=== PATIENT | male | born 1975 ===

== ENCOUNTER 2017-09-08 13:54 | Observation (INO) | payer SELFPAY ==
--- NOTE | 2017-09-08 14:46 | C.PDOC ---
History Of Present Illness Patient is a 42 y/o male, with a Hx of HTN, who presents to the ED with a complaint of intermittent SOB and left-sided posterior rib discomfort. Patient currently takes ___ for HTN. Denies any CP, trauma, injury, or Hx of DVT or PE. No other physical complaints at this time. Time Seen by Provider: 09/08/17 14:23 Chief Complaint (Nursing): High Blood Pressure History Per: Patient History/Exam Limitations: no limitations Current Symptoms Are (Timing): Still Present Associated Symptoms: Other (intermittent SOB ). denies: Chest Pain Recent travel outside of the [place]: No Past Medical History Reviewed: Historical Data, Nursing Documentation, Vital Signs Vital Signs: Last Vital Signs Temp 97.7 F 09/09/17 07:41 Pulse 81 09/09/17 11:56 Resp 20 09/09/17 07:41 BP 151/93 H 09/09/17 11:56 Pulse Ox 99 09/09/17 07:41 - Medical History PMH: HTN Surgical History: No Surg Hx Family History: States: No Known Family Hx - Social History Hx Tobacco Use: No Hx Alcohol Use: Yes Hx Substance Use: No - Immunization History Hx Tetanus Toxoid Vaccination: No Hx Influenza Vaccination: No Hx Pneumococcal Vaccination: No Review Of Systems Cardiovascular: Negative for: Chest Pain Respiratory: Positive for: Shortness of Breath Physical Exam - Physical Exam Appears: Well, Non-toxic, No Acute Distress Skin: Normal Color, Warm, Dry Head: Atraumatic, Normacephalic Eye(s): bilateral: PERRL, EOMI Oral Mucosa: Moist Chest: Symmetrical, No Tenderness Cardiovascular: Rhythm Regular, No Murmur Respiratory: Normal Breath Sounds, No Rales, No Rhonchi, No Wheezing Gastrointestinal/Abdominal: Soft, No Tenderness Neurological/Psych: Oriented x3 ED Course And Treatment - Laboratory Results Result Diagrams: 09/09/17 03:56 09/09/17 03:56 ECG: Interpreted By Me, Viewed By Me ECG Rhythm: Sinus Rhythm, Nonspecific Changes Interpretation Of ECG: normal intervals, normal axis, no st/t wave abnormalities. Rate From EC (bpm) O2 Sat by Pulse Oximetry: 96 (room air) Pulse Ox Interpretation: Normal - CT Scan/US CT Chest Other Rad Studies (CT/US): Interpreted By Me, Read By Radiologist CT/US Interpretation: PROCEDURE: CT Chest with contrast. HISTORY: chest pain. COMPARISON: None. TECHNIQUE: Contiguous axial images were obtained through the chest with intravenous contrast enhancement. Sagittal and coronal reconstructions were performed. IV contrast: 100 mL Visipaque 320. Radiation dose (DLP): 533.41 mGy-cm. This CT exam was performed using one or more of the following dose reduction techniques: Automated exposure control, adjustment of the mA and/or kV according to patient size, and/or use of iterative reconstruction technique. FINDINGS: LUNGS: No evidence of acute pathology in the lungs. No evidence of suspicious mass. MEDIASTINUM: Unremarkable thoracic aorta. No aneurysm or dissection. Normal sized heart. Main pulmonary artery unremarkable. No vascular congestion. No lymphadenopathy. PLEURA: No pleural fluid. No pneumothorax. BONES: No fracture. No destructive lesion. UPPER ABDOMEN: The left kidney is not visualized. No evidence of acute pathology in the visualized portion of the upper abdomen. OTHER FINDINGS: None. IMPRESSION : No evidence of acute pathology in the chest. Please note that this study was performed using PE protocol. Progress Note: EKG ordered. Trandate administered. Patient accepted and admitted to [facility] by hospitalist. Disposition Discussed With DrParul: Jarrett Kevin Counseled Patient/Family Regarding: Studies Performed, Diagnosis - Disposition Disposition: HOSPITALIZED Disposition Time: 17:36 Condition: STABLE - Clinical Impression Clinical Impression: Chest pain - Scribe Statement The provider has reviewed the documentation as recorded by the Scribe Harriet Biswas All medical record entries made by the Scribe were at my direction and personally dictated by me. I have reviewed the chart and agree that the record accurately reflects my personal performance of the history, physical exam, medical decision making, and the department course for this patient. I have also personally directed, reviewed, and agree with the discharge instructions and disposition.
[2017-09-08 15:20] LABS: BASO % 0.6 % (0.0-2.0); EOS # 0.1 K/uL (0.0-0.7); EOS % 1.8 % (0.0-4.0); HEMOGLOBIN 16.3 g/dL (12.0-18.0); LYMPH # 2.2 K/uL (1.0-4.3); LYMPH % 30.7 % (20.0-40.0); MEAN CELL VOLUME 81.6 fL (80.0-94.0); MEAN CORPUSCULAR HGB CONC 34.3 g/dL (33.0-37.0); MEAN PLATELET VOLUME 8.4 fL (7.2-11.7); MONO # 0.5 K/uL (0.0-0.8); MONO % 7.2 % (0.0-10.0); NEUT # 4.2 K/uL (1.8-7.0); NEUT % 59.7 % (50.0-75.0); RBC 5.82 Mil/uL (4.40-5.90); RED CELL DISTRIBUTION WIDTH 13.4 % (11.5-14.5)
[2017-09-08 15:34] LABS: ALB/GLOB RATIO 1.3 (1.0-2.1); ALBUMIN 4.5 g/dL (3.5-5.0); ALT/SGPT 32 U/L (21-72); AST/SGOT 33 U/L (17-59); BLOOD UREA NITROGEN 12 mg/dL (9-20); CALCIUM 9.6 mg/dl (8.6-10.4); GFR AFRICAN-AMERICAN > 60; GFR NON-AFRICAN AMERICAN > 60
[2017-09-08 15:47] LABS: B-TYPE NATRIURETIC PEPTIDE < 11.1 pg/mL (0-450)
[2017-09-08] MEDS ORDERED: Iodixanol 320 mg/ml 150 ml Bottle IV ONE (15:53)
--- NOTE | 2017-09-08 16:33 | CT ---
PROCEDURE: CT Chest with contrast HISTORY: chest pain COMPARISON: None. TECHNIQUE: Contiguous axial images were obtained through the chest with intravenous contrast enhancement. Sagittal and coronal reconstructions were performed. IV contrast: 100 mL Visipaque 320 Radiation dose (DLP): 533.41 mGy-cm. This CT exam was performed using one or more of the following dose reduction techniques: Automated exposure control, adjustment of the mA and/or kV according to patient size, and/or use of iterative reconstruction technique. FINDINGS: LUNGS: No evidence of acute pathology in the lungs. No evidence of suspicious mass. MEDIASTINUM: Unremarkable thoracic aorta. No aneurysm or dissection. Normal sized heart. Main pulmonary artery unremarkable. No vascular congestion. No lymphadenopathy. PLEURA: No pleural fluid. No pneumothorax. BONES: No fracture. No destructive lesion. UPPER ABDOMEN: The left kidney is not visualized. No evidence of acute pathology in the visualized portion of the upper abdomen. OTHER FINDINGS: None. IMPRESSION: No evidence of acute pathology in the chest. Please note that this study was performed using PE protocol.
[2017-09-08] MEDS ORDERED: Labetalol 5 mg/ml Inj 20ML IV STA (17:32)
[2017-09-08] MEDS ORDERED: Labetalol 25mg/5ml Syringe ONE (17:54)
--- NOTE | 2017-09-08 18:23 | CP.PCM.HP ---
<Lorie Rodriguez - Last Filed: 09/08/17 18:50> History of Present Illness - History of Present Illness History of Present Illness: CC - "Shortness of breath" HPI - 42 year old male with a past medical history of hypertension presents today for shortness of breath. He states this has been intermittent for the last couple weeks. He denies sick contacts, fever/chills, cough, chest pain. He states that he went to his family doctor to tell her and she kristina blood work on him. He states that at time he will get a discomfort like a gassy sensation by his ribs on the left side when he is short of breath. Patient states that he feels this happens when his blood pressure is high. He states that when he checks his blood pressure at home he gets systolic 170s. He admits compliance with medications. PmHx - hypertension Meds - Diltiazem 24 ER 240mg PO daily, Irbesartan/Hctz 12.5/150 PO daily Allergies - NKDA Surg - denies Famhx - father with esophageal ca, no hx of ME or stroke Social - socially smokes cigarettes, socially drinks alcohol less than once a week, denies drug use Present on Admission - Present on Admission Any Indicators Present on Admission: No Review of Systems - Constitutional Constitutional: absent: Chills, Fever - EENT Eyes: absent: Blurred Vision, Change in Vision - Cardiovascular Cardiovascular: absent: Chest Pain, Chest Pain at Rest, Palpitations, Pedal Edema, Syncope - Respiratory Respiratory: Dyspnea, Dyspnea on Exertion. absent: Cough - Gastrointestinal Gastrointestinal: absent: Abdominal Pain, Constipation, Diarrhea, Heartburn, Nausea, Vomiting - Genitourinary Genitourinary: absent: Change in Urinary Stream, Difficulty Urinating Past Patient History - Past Social History Smoking Status: Never Smoked - CARDIAC Hx Hypertension: Yes - PSYCHIATRIC Hx Substance Use: No - SURGICAL HISTORY Other/Comment: testicle surgery-2012 Meds Allergies/Adverse Reactions: Allergies Allergy/AdvReac Type Severity Reaction Status Date / Time No Known Allergies Allergy Verified 09/08/17 14:01 Physical Exam - Constitutional Appears: Non-toxic, No Acute Distress - Head Exam Head Exam: ATRAUMATIC, NORMAL INSPECTION - Eye Exam Eye Exam: EOMI, Normal appearance, PERRL Pupil Exam: NORMAL ACCOMODATION - ENT Exam ENT Exam: Mucous Membranes Moist - Respiratory Exam Respiratory Exam: Clear to Auscultation Bilateral, NORMAL BREATHING PATTERN. absent: Accessory Muscle Use, Chest Wall Tenderness, Rales, Wheezes, Respiratory Distress - Cardiovascular Exam Cardiovascular Exam: REGULAR RHYTHM, +S1, +S2 - GI/Abdominal Exam GI & Abdominal Exam: Normal Bowel Sounds, Soft. absent: Distended, Firm, Guarding, Tenderness - Extremities Exam Extremities exam: Positive for: normal inspection. Negative for: calf tenderness, pedal edema - Back Exam Back exam: NORMAL INSPECTION. absent: CVA tenderness (L), CVA tenderness (R), paraspinal tenderness - Neurological Exam Neurological exam: Alert, CN II-XII Intact, Normal Gait, Oriented x3 - Psychiatric Exam Psychiatric exam: Normal Affect, Normal Mood - Skin Skin Exam: Dry, Intact, Normal Color, Warm Results - Vital Signs Recent Vital Signs: Last Vital Signs Temp 98.2 F 09/08/17 17:41 Pulse 90 09/08/17 18:08 Resp 18 09/08/17 18:08 BP 159/96 H 09/08/17 18:08 Pulse Ox 100 09/08/17 17:41 - Labs Result Diagrams: 09/08/17 15:11 09/08/17 15:11 Labs: Laboratory Results - last 24 hr 09/08/17 09/08/17 09/08/17 15:11 15:11 15:11 WBC 7.0 RBC 5.82 Hgb 16.3 Hct 47.5 MCV 81.6 MCH 28.0 MCHC 34.3 RDW 13.4 Plt Count 301 MPV 8.4 Neut % (Auto) 59.7 Lymph % (Auto) 30.7 Richardson % (Auto) 7.2 Eos % (Auto) 1.8 Baso % (Auto) 0.6 Neut # (Auto) 4.2 Lymph # (Auto) 2.2 Richardson # (Auto) 0.5 Eos # (Auto) 0.1 Baso # (Auto) 0.0 D-Dimer, Quantitative < 200 Sodium 136 Potassium 3.9 Chloride 96 L Carbon Dioxide 28 Anion Gap 16 BUN 12 Creatinine 1.0 Est GFR ( Amer) > 60 Est GFR (Non-Af Amer) > 60 Random Glucose 106 Calcium 9.6 Total Bilirubin 1.3 AST 33 ALT 32 Alkaline Phosphatase 81 Troponin I < 0.0120 NT-Pro-B Natriuret Pep < 11.1 Total Protein 7.9 Albumin 4.5 Globulin 3.5 Albumin/Globulin Ratio 1.3 Assessment & Plan - Assessment and Plan (Free Text) Assessment: Shortness of breath CT chest negative DDimer negative Troponin negative, will trend x 3 EKG no acute changes, NSR Albuterol prn SOB saturating 99% on room air f/u echo, am labs Hypertension Uncontrolled, elevated on admission Continue Cardizem 240mg PO daily Continue Irbesartan/Hctz 12.5/150mg PO daily Prophylactic Measures SCD GI - not indicated Heart healthy low sodium diet <Jarrett Kevin - Last Filed: 09/08/17 19:08> Results - Vital Signs Recent Vital Signs: Last Vital Signs Temp 98 F 09/08/17 18:52 Pulse 71 09/08/17 18:52 Resp 16 09/08/17 18:52 BP 136/99 H 09/08/17 18:52 Pulse Ox 99 09/08/17 18:52 - Labs Result Diagrams: 09/08/17 15:11 09/08/17 15:11 Labs: Laboratory Results - last 24 hr 09/08/17 09/08/17 09/08/17 15:11 15:11 15:11 WBC 7.0 RBC 5.82 Hgb 16.3 Hct 47.5 MCV 81.6 MCH 28.0 MCHC 34.3 RDW 13.4 Plt Count 301 MPV 8.4 Neut % (Auto) 59.7 Lymph % (Auto) 30.7 Richardson % (Auto) 7.2 Eos % (Auto) 1.8 Baso % (Auto) 0.6 Neut # (Auto) 4.2 Lymph # (Auto) 2.2 Richardson # (Auto) 0.5 Eos # (Auto) 0.1 Baso # (Auto) 0.0 D-Dimer, Quantitative < 200 Sodium 136 Potassium 3.9 Chloride 96 L Carbon Dioxide 28 Anion Gap 16 BUN 12 Creatinine 1.0 Est GFR ( Amer) > 60 Est GFR (Non-Af Amer) > 60 Random Glucose 106 Calcium 9.6 Total Bilirubin 1.3 AST 33 ALT 32 Alkaline Phosphatase 81 Troponin I < 0.0120 NT-Pro-B Natriuret Pep < 11.1 Total Protein 7.9 Albumin 4.5 Globulin 3.5 Albumin/Globulin Ratio 1.3 Attending/Attestation - Attestation I have personally seen and examined this patient.: Yes I have fully participated in the care of the patient.: Yes I have reviewed all pertinent clinical information: Yes Notes (Text): Patient was seen and examined by me. Came for SOB on exertion for 2 weeks.No chest pain,no palpitation. not a smoker h/o HTN on meds.compliance with meds,no h/o heart disease d dimer normal,ct chest normal Plan discussed with the resident I agree with the documentation of the assessment and the plan do echo,ELIO panel,tele observation follow at clinic
[2017-09-08] MEDS ORDERED: Albuterol-Ipratrop 3 mg / 0.5 (3 ml) UD INH PRN (18:38)
[2017-09-09 04:01] LABS: BASO # 0.1 K/uL (0.0-0.2); BASO % 0.8 % (0.0-2.0); EOS # 0.2 K/uL (0.0-0.7); EOS % 1.8 % (0.0-4.0); HEMOGLOBIN 16.5 g/dL (12.0-18.0); LYMPH % 33.2 % (20.0-40.0); MEAN CELL VOLUME 81.7 fL (80.0-94.0); MEAN CORPUSCULAR HEMOGLOBIN 28.2 pg (27.0-31.0); MEAN CORPUSCULAR HGB CONC 34.6 g/dL (33.0-37.0); MEAN PLATELET VOLUME 8.3 fL (7.2-11.7); MONO # 0.7 K/uL (0.0-0.8); MONO % 7.2 % (0.0-10.0); NEUT # 5.2 K/uL (1.8-7.0); RBC 5.82 Mil/uL (4.40-5.90); RED CELL DISTRIBUTION WIDTH 13.6 % (11.5-14.5); WHITE BLOOD COUNT 9.1 K/uL (4.8-10.8)
[2017-09-09 04:19] LABS: ALB/GLOB RATIO 1.3 (1.0-2.1); ALBUMIN 4.1 g/dL (3.5-5.0); ALT/SGPT 30 U/L (21-72); AST/SGOT 28 U/L (17-59); BLOOD UREA NITROGEN 11 mg/dL (9-20); CALCIUM 9.6 mg/dl (8.6-10.4); GFR AFRICAN-AMERICAN > 60; GFR NON-AFRICAN AMERICAN > 60; HDL CHOLESTEROL 38 mg/dL (30-70)
[2017-09-09 04:29] LABS: LDL CHOLESTEROL 75 mg/dL (0-129)
[2017-09-09 05:52] LABS: CK-MB 1.58 ng/mL (0.0-3.38)
[2017-09-09 07:42] VITALS: RESP 20; TEMP 97.7
[2017-09-09] MEDS ORDERED: Ergocalciferol 50,000 Intl Units Cap PO SCH (08:00)
[2017-09-09] MEDS ORDERED: diltiaZEM 240 mg/24 Hours CD Cap PO SCH (10:00)
[2017-09-09] MEDS ORDERED: Pneumococcal 23-Valent Vaccine IM ONE (11:00)
--- NOTE | 2017-09-09 11:24 | CP.PCM.DIS ---
<Martín Payne - Last Filed: 09/09/17 16:11> Provider - Provider Date of Admission: 09/08/17 17:35 Attending physician: Jarrett Kevin MD Primary care physician: Montse Consults: none Time Spent in preparation of Discharge (in minutes): 45 Hospital Course - Lab Results Lab Results: Most Recent Lab Values WBC 9.1 K/uL (4.8-10.8) 09/09/17 03:56 RBC 5.82 Mil/uL (4.40-5.90) 09/09/17 03:56 Hgb 16.5 g/dL (12.0-18.0) 09/09/17 03:56 Hct 47.6 % (35.0-51.0) 09/09/17 03:56 MCV 81.7 fL (80.0-94.0) 09/09/17 03:56 MCH 28.2 pg (27.0-31.0) 09/09/17 03:56 MCHC 34.6 g/dL (33.0-37.0) 09/09/17 03:56 RDW 13.6 % (11.5-14.5) 09/09/17 03:56 Plt Count 310 K/uL (130-400) 09/09/17 03:56 MPV 8.3 fL (7.2-11.7) 09/09/17 03:56 Neut % (Auto) 57.0 % (50.0-75.0) 09/09/17 03:56 Lymph % (Auto) 33.2 % (20.0-40.0) 09/09/17 03:56 Ramsey % (Auto) 7.2 % (0.0-10.0) 09/09/17 03:56 Eos % (Auto) 1.8 % (0.0-4.0) 09/09/17 03:56 Baso % (Auto) 0.8 % (0.0-2.0) 09/09/17 03:56 Neut # (Auto) 5.2 K/uL (1.8-7.0) 09/09/17 03:56 Lymph # (Auto) 3.0 K/uL (1.0-4.3) 09/09/17 03:56 Ramsey # (Auto) 0.7 K/uL (0.0-0.8) 09/09/17 03:56 Eos # (Auto) 0.2 K/uL (0.0-0.7) 09/09/17 03:56 Baso # (Auto) 0.1 K/uL (0.0-0.2) 09/09/17 03:56 D-Dimer, Quantitative < 200 ng/mlDDU (0-243) 09/08/17 15:11 Sodium 138 mmol/L (132-148) 09/09/17 03:56 Potassium 3.8 mmol/L (3.6-5.2) 09/09/17 03:56 Chloride 98 mmol/L (98-107) 09/09/17 03:56 Carbon Dioxide 27 mmol/L (22-30) 09/09/17 03:56 Anion Gap 17 (10-20) 09/09/17 03:56 BUN 11 mg/dL (9-20) 09/09/17 03:56 Creatinine 0.9 mg/dL (0.8-1.5) 09/09/17 03:56 Est GFR ( Amer) > 60 09/09/17 03:56 Est GFR (Non-Af Amer) > 60 09/09/17 03:56 Random Glucose 94 mg/dL (75-110) 09/09/17 03:56 Hemoglobin A1c 5.9 % (4.2-6.5) 09/09/17 03:56 Calcium 9.6 mg/dl (8.6-10.4) 09/09/17 03:56 Phosphorus 4.6 mg/dL (2.5-4.5) H 09/09/17 03:56 Magnesium 1.9 mg/dL (1.6-2.3) 09/09/17 03:56 Total Bilirubin 1.2 mg/dL (0.2-1.3) 09/09/17 03:56 AST 28 U/L (17-59) 09/09/17 03:56 ALT 30 U/L (21-72) 09/09/17 03:56 Alkaline Phosphatase 90 U/L (38-126) 09/09/17 03:56 Total Creatine Kinase 140 U/L (55-170) 09/09/17 00:44 CK-MB (Mass) 1.58 ng/mL (0.0-3.38) 09/09/17 00:44 Troponin I < 0.0120 ng/mL (0.00-0.120) 09/09/17 00:44 NT-Pro-B Natriuret Pep < 11.1 pg/mL (0-450) 09/08/17 15:11 Total Protein 7.2 g/dL (6.3-8.3) 09/09/17 03:56 Albumin 4.1 g/dL (3.5-5.0) 09/09/17 03:56 Globulin 3.1 gm/dL (2.2-3.9) 09/09/17 03:56 Albumin/Globulin Ratio 1.3 (1.0-2.1) 09/09/17 03:56 Triglycerides 191 mg/dL (0-149) H 09/09/17 03:56 Cholesterol 148 mg/dL (0-199) 09/09/17 03:56 LDL Cholesterol Direct 75 mg/dL (0-129) 09/09/17 03:56 HDL Cholesterol 38 mg/dL (30-70) 09/09/17 03:56 25-OH Vitamin D Total 22.4 NG/ML (30.0-100.0) L 09/09/17 03:56 Free T4 0.69 ng/dL (0.78-2.19) L 09/09/17 03:56 TSH 3rd Generation 5.09 mIU/L (0.46-4.68) H 09/09/17 03:56 - Hospital Course Hospital Course: 42 year old male with a past medical history of hypertension presents today for shortness of breath. He states this has been intermittent for the last couple weeks. He denies sick contacts, fever/chills, cough, chest pain. He states that he went to his family doctor to tell her and she kristina blood work on him. He states that at time he will get a discomfort like a gassy sensation by his ribs on the left side when he is short of breath. Patient states that he feels this happens when his blood pressure is high. He states that when he checks his blood pressure at home he gets systolic 170s. He admits compliance with medications. Patient was brought into the hospital for chest pain observation r/o CO. He had 3 negative troponins and 3 EKGs that did not show any ST changes or any arrythmogenic intervals. Patient went for echo while he was here. Patient was found to have elevated TSH and low vitamin D was started on ergocalciferol 10607 units Q7D. Instructed to follow up with his primary care for further work up for TSH level and low vitamin D. The rest of his stay was unremarkable. Discharge Exam - Head Exam Head Exam: ATRAUMATIC, NORMAL INSPECTION - Eye Exam Eye Exam: EOMI, Normal appearance, PERRL Pupil Exam: NORMAL ACCOMODATION, PERRL - Respiratory Exam Respiratory Exam: Clear to PA & Lateral, UNREMARKABLE - Cardiovascular Exam Cardiovascular Exam: REGULAR RHYTHM - GI/Abdominal Exam GI & Abdominal Exam: Normal Bowel Sounds - Neurological Exam Neurological exam: Alert, CN II-XII Intact, Normal Gait, Oriented x3, Reflexes Normal - Psychiatric Exam Psychiatric exam: Normal Affect, Normal Mood - Skin Skin Exam: Dry, Intact, Normal Color, Warm Discharge Plan - Discharge Medications Prescriptions: Ergocalciferol [Drisdol 50,000 Intl Units Cap] 1 cap PO Q7D 30 Days cap - Follow Up Plan Condition: STABLE Disposition: HOME/ ROUTINE Instructions: High Blood Pressure in Adults, Smoking: Not Just Harmful to Your Lungs and Heart, High Blood Pressure (DC), Low Salt Diet, Quitting Smoking Additional Instructions: 1. Please have primary doctor, Dr. Willard, follow up on your Elevated TSH level. It was elevated to 5.06 with a T4 of 0.69. I have attached a copy of your records for your primary doctor to review. 2. You were found to have a low level of Vitamin D. I have started you on medication to replace this vitamin. Please follow up with your regular doctor so he can manage this vitamin level. I have attached a copy of this report so you can give it to your primary care doctor. 3. Please have Dr. Willard follow up your Echo report. 4. Continue taking the follwoing medications: - Diltiazem CD 240 mg by mouth daily with dinner - Irbesartan-HCTZ 150/12.5mg by mouth daiuly with breakfast - Vitamin D 50,000 units by mouth once per week on Tuesdays for a total of 8 weeks with Lunch 5. Please call to get more information on how to quit smoking. <Chaka Dill - Last Filed: 09/09/17 19:50> Provider - Provider Date of Admission: 09/08/17 17:35 Attending physician: Jarrett Kevin MD Time Spent in preparation of Discharge (in minutes): 40 Hospital Course - Lab Results Lab Results: Most Recent Lab Values WBC 9.1 K/uL (4.8-10.8) 09/09/17 03:56 RBC 5.82 Mil/uL (4.40-5.90) 09/09/17 03:56 Hgb 16.5 g/dL (12.0-18.0) 09/09/17 03:56 Hct 47.6 % (35.0-51.0) 09/09/17 03:56 MCV 81.7 fL (80.0-94.0) 09/09/17 03:56 MCH 28.2 pg (27.0-31.0) 09/09/17 03:56 MCHC 34.6 g/dL (33.0-37.0) 09/09/17 03:56 RDW 13.6 % (11.5-14.5) 09/09/17 03:56 Plt Count 310 K/uL (130-400) 09/09/17 03:56 MPV 8.3 fL (7.2-11.7) 09/09/17 03:56 Neut % (Auto) 57.0 % (50.0-75.0) 09/09/17 03:56 Lymph % (Auto) 33.2 % (20.0-40.0) 09/09/17 03:56 Ramsey % (Auto) 7.2 % (0.0-10.0) 09/09/17 03:56 Eos % (Auto) 1.8 % (0.0-4.0) 09/09/17 03:56 Baso % (Auto) 0.8 % (0.0-2.0) 09/09/17 03:56 Neut # (Auto) 5.2 K/uL (1.8-7.0) 09/09/17 03:56 Lymph # (Auto) 3.0 K/uL (1.0-4.3) 09/09/17 03:56 Ramsey # (Auto) 0.7 K/uL (0.0-0.8) 09/09/17 03:56 Eos # (Auto) 0.2 K/uL (0.0-0.7) 09/09/17 03:56 Baso # (Auto) 0.1 K/uL (0.0-0.2) 09/09/17 03:56 D-Dimer, Quantitative < 200 ng/mlDDU (0-243) 09/08/17 15:11 Sodium 138 mmol/L (132-148) 09/09/17 03:56 Potassium 3.8 mmol/L (3.6-5.2) 09/09/17 03:56 Chloride 98 mmol/L (98-107) 09/09/17 03:56 Carbon Dioxide 27 mmol/L (22-30) 09/09/17 03:56 Anion Gap 17 (10-20) 09/09/17 03:56 BUN 11 mg/dL (9-20) 09/09/17 03:56 Creatinine 0.9 mg/dL (0.8-1.5) 09/09/17 03:56 Est GFR ( Amer) > 60 09/09/17 03:56 Est GFR (Non-Af Amer) > 60 09/09/17 03:56 Random Glucose 94 mg/dL (75-110) 09/09/17 03:56 Hemoglobin A1c 5.9 % (4.2-6.5) 09/09/17 03:56 Calcium 9.6 mg/dl (8.6-10.4) 09/09/17 03:56 Phosphorus 4.6 mg/dL (2.5-4.5) H 09/09/17 03:56 Magnesium 1.9 mg/dL (1.6-2.3) 09/09/17 03:56 Total Bilirubin 1.2 mg/dL (0.2-1.3) 09/09/17 03:56 AST 28 U/L (17-59) 09/09/17 03:56 ALT 30 U/L (21-72) 09/09/17 03:56 Alkaline Phosphatase 90 U/L (38-126) 09/09/17 03:56 Total Creatine Kinase 140 U/L (55-170) 09/09/17 00:44 CK-MB (Mass) 1.58 ng/mL (0.0-3.38) 09/09/17 00:44 Troponin I < 0.0120 ng/mL (0.00-0.120) 09/09/17 00:44 NT-Pro-B Natriuret Pep < 11.1 pg/mL (0-450) 09/08/17 15:11 Total Protein 7.2 g/dL (6.3-8.3) 09/09/17 03:56 Albumin 4.1 g/dL (3.5-5.0) 09/09/17 03:56 Globulin 3.1 gm/dL (2.2-3.9) 09/09/17 03:56 Albumin/Globulin Ratio 1.3 (1.0-2.1) 09/09/17 03:56 Triglycerides 191 mg/dL (0-149) H 09/09/17 03:56 Cholesterol 148 mg/dL (0-199) 09/09/17 03:56 LDL Cholesterol Direct 75 mg/dL (0-129) 09/09/17 03:56 HDL Cholesterol 38 mg/dL (30-70) 09/09/17 03:56 25-OH Vitamin D Total 22.4 NG/ML (30.0-100.0) L 09/09/17 03:56 Free T4 0.69 ng/dL (0.78-2.19) L 09/09/17 03:56 TSH 3rd Generation 5.09 mIU/L (0.46-4.68) H 09/09/17 03:56 Attending/Attestation - Attestation I have personally seen and examined this patient.: Yes I have fully participated in the care of the patient.: Yes I have reviewed all pertinent clinical information, including history, physical exam and plan: Yes Notes (Text): 09/09/17 19:48 Patient was seen and examined at 10:30 AM Exam, assessment and plan and discharge instructions were gone over with the resident Discharge instructions were explained to patient in Maltese with the help of GERRY Dill D.O.
[2017-09-09 11:59] VITALS: BP 151/93; PULSE 81
--- NOTE | 2017-09-10 02:03 | CARD ---
APPROVED REPORT EKG Measurement Heart [id number] NM [id number] <Conclusion> Normal sinus rhythm Normal ECG
--- NOTE | 2017-09-10 02:03 | CARD ---
APPROVED REPORT EKG Measurement Heart [id number] MA [id number] <Conclusion> Normal sinus rhythm with sinus arrhythmia Normal ECG
[2017-09-10 14:03] VITALS: O2SAT 96
== END 2017-09-09 14:01 | disposition home or self-care (01) ==
LOC: C.ER 13:54 → C.9E 17:35 → C.5S 18:33
PROVIDERS: ADMIT Internal Medicine; ATTEND Internal Medicine
DX: R07.9 Chest pain, unspecified (principal); I10 Essential (primary) hypertension; Z72.0 Tobacco use; R06.02 Shortness of breath; Z23 Encounter for immunization
CPT/HCPCS: 36415; 71260; 80053; 80061; 82306; 83036; 83735; 83880; 84100; 84439; 84443; 84484; 85025; 85378; 90732; 99285; G0009; G0378; Q9967

== ENCOUNTER 2017-11-02 20:02 | Emergency (ER) | payer SELFPAY ==
--- NOTE | 2017-11-02 21:01 | C.PDOC ---
History Of Present Illness 42 year old male presents to the ER with a complaint of elevated blood pressure today, associated with headache. Patient also reports having a dry cough and pain to his left side for the past few days. Denies nausea, vomiting, or SOB. Time Seen by Provider: 11/02/17 20:34 Chief Complaint (Nursing): High Blood Pressure History Per: Patient History/Exam Limitations: no limitations Onset/Duration Of Symptoms: Hrs Current Symptoms Are (Timing): Still Present Associated Symptoms: Headache Exacerbating Factor(s): Pos: None Recent travel outside of the [place]: No Past Medical History Reviewed: Historical Data, Nursing Documentation, Vital Signs Vital Signs: Last Vital Signs Temp 98.5 F 11/02/17 20:09 Pulse 45 L 11/02/17 20:42 Resp 12 11/02/17 20:42 BP 156/93 H 11/02/17 20:42 Pulse Ox 96 11/02/17 21:01 - Medical History PMH: HTN Family History: States: Unknown Family Hx - Social History Hx Tobacco Use: No Hx Alcohol Use: Yes Hx Substance Use: No - Immunization History Hx Tetanus Toxoid Vaccination: No Hx Influenza Vaccination: Yes Hx Pneumococcal Vaccination: No Review Of Systems Except As Marked, All Systems Reviewed And Found Negative. Respiratory: Positive for: Cough. Negative for: Shortness of Breath, Sputum Gastrointestinal: Negative for: Nausea, Vomiting Musculoskeletal: Positive for: Other (Pain to left side) Neurological: Positive for: Headache Physical Exam - Physical Exam Additional Physical Exam Comments: Constitutional: No acute distress. Head: Normocephalic. Atraumatic. Eyes: PERRL. ENT: Moist mucous membranes. Neck: Supple. Cardiovascular: Regular rate. Radial pulse 2+ bilaterally. Chest: No tenderness. Respiratory: Clear to auscultation bilaterally. GI: Soft. Nontender. Nondistended. Back: No CVA tenderness. Musculoskeletal: No tenderness or swelling of extremities. Skin: No rash. Neurologic: Alert, no focal deficit. ED Course And Treatment - Laboratory Results Result Diagrams: 11/02/17 21:14 11/02/17 21:14 O2 Sat by Pulse Oximetry: 96 (Room air) Pulse Ox Interpretation: Normal Medical Decision Making Medical Decision Making: BP improving without intervention. EKG Sinus rhythm, 50 bpm, no ST/T wave changes. CXR no pneumonia or fib fracture. Labs unremarkable with this thoracic pain for more than 2 days. Disposition - Disposition Disposition: HOME/ ROUTINE Disposition Time: 22:03 Condition: STABLE Instructions: Cough, Adult (DC), High Blood Pressure in Adults Forms: [facility] (Cuban) Print Language: BOTSWANAN - Clinical Impression Clinical Impression: Hypertension - Scribe Statement The provider has reviewed the documentation as recorded by the Scribe Charlie Roy All medical record entries made by the Ashaibe were at my direction and personally dictated by me. I have reviewed the chart and agree that the record accurately reflects my personal performance of the history, physical exam, medical decision making, and the department course for this patient. I have also personally directed, reviewed, and agree with the discharge instructions and disposition.
[2017-11-02 21:17] LABS: BASO % 0.5 % (0.0-2.0); EOS # 0.1 K/uL (0.0-0.7); EOS % 1.3 % (0.0-4.0); HEMOGLOBIN 15.9 g/dL (12.0-18.0); LYMPH # 1.5 K/uL (1.0-4.3); LYMPH % 24.5 % (20.0-40.0); MEAN CELL VOLUME 81.2 fL (80.0-94.0); MEAN CORPUSCULAR HEMOGLOBIN 27.3 pg (27.0-31.0); MEAN CORPUSCULAR HGB CONC 33.6 g/dL (33.0-37.0); MEAN PLATELET VOLUME 7.8 fL (7.2-11.7); MONO # 0.5 K/uL (0.0-0.8); MONO % 7.7 % (0.0-10.0); NRBC % 0.1 % (0.0-2.0); RBC 5.83 Mil/uL (4.40-5.90); RED CELL DISTRIBUTION WIDTH 13.3 % (11.5-14.5); WHITE BLOOD COUNT 6.1 K/uL (4.8-10.8)
[2017-11-02 21:28] LABS: ALB/GLOB RATIO 1.3 (1.0-2.1); ALBUMIN 4.2 g/dL (3.5-5.0); ALT/SGPT 36 U/L (21-72); AST/SGOT 33 U/L (17-59); BLOOD UREA NITROGEN 13 mg/dL (9-20); CALCIUM 9.6 mg/dl (8.6-10.4); GFR AFRICAN-AMERICAN > 60; GFR NON-AFRICAN AMERICAN > 60
[2017-11-02 21:40] LABS: CK-MB 2.26 ng/mL (0.0-3.38)
[2017-11-02 22:09] VITALS: TEMP 99.1
[2017-11-02 22:15] VITALS: BP 152/98; PULSE 47; RESP 14; O2SAT 96
--- NOTE | 2017-11-03 07:52 | RAD ---
HISTORY: cough COMPARISON: Comparison is made with the previous CT dated 09/08/2017 TECHNIQUE: Chest PA and lateral FINDINGS: LUNGS: No active pulmonary disease. PLEURA: No significant pleural effusion identified. No pneumothorax apparent. CARDIOVASCULAR: Normal. OSSEOUS STRUCTURES: No significant abnormalities. VISUALIZED UPPER ABDOMEN: Normal. OTHER FINDINGS: None. IMPRESSION: No radiographic evidence of pneumonia.
--- NOTE | 2017-11-06 22:39 | CARD ---
APPROVED REPORT EKG Measurement Heart [id number] [place] 202P59 [id number] <Conclusion> Sinus bradycardia Otherwise normal ECG
== END 2017-11-02 22:16 | disposition home or self-care (01) ==
LOC: C.ER 20:02
DX: I10 Essential (primary) hypertension (principal)
CPT/HCPCS: 71046; 80053; 82550; 82553; 84484; 85025; 96374; 99284; J1885

== ENCOUNTER 2017-11-05 11:14 | Emergency (ER) | payer SELFPAY ==
[2017-11-05 12:48] LABS: BASO % 0.6 % (0.0-2.0); EOS % 0.6 % (0.0-4.0); LYMPH # 1.6 K/uL (1.0-4.3); MEAN CELL VOLUME 81.8 fL (80.0-94.0); MEAN CORPUSCULAR HEMOGLOBIN 27.7 pg (27.0-31.0); MEAN CORPUSCULAR HGB CONC 33.9 g/dL (33.0-37.0); MEAN PLATELET VOLUME 8.4 fL (7.2-11.7); MONO # 0.4 K/uL (0.0-0.8); MONO % 5.6 % (0.0-10.0); NEUT % 70.2 % (50.0-75.0); NRBC % 0.1 % (0.0-2.0); RBC 5.76 Mil/uL (4.40-5.90); RED CELL DISTRIBUTION WIDTH 13.4 % (11.5-14.5); WHITE BLOOD COUNT 7.1 K/uL (4.8-10.8)
[2017-11-05 13:04] LABS: ALB/GLOB RATIO 1.5 (1.0-2.1); ALBUMIN 4.5 g/dL (3.5-5.0); ALT/SGPT 34 U/L (21-72); AST/SGOT 30 U/L (17-59); BLOOD UREA NITROGEN 11 mg/dL (9-20); CALCIUM 9.6 mg/dl (8.6-10.4); GFR AFRICAN-AMERICAN > 60; GFR NON-AFRICAN AMERICAN > 60
--- NOTE | 2017-11-05 13:21 | C.PDOC ---
History Of Present Illness 42-year-old male, PMHx includes Hypertension, presents to the emergency department with complaints of headache and chest pain. Patient states he was already evaluated a few days ago, and also went to see his doctor who added Amlodipine to medication regiment. Pt reports he checked his blood pressure, which was high, prompting visit. He denies any numbness/weakness, nausea/ vomiting, dizziness, shortness of breath, back pain, speech or visual changes. PMD Cailin Wilcox MD. Time Seen by Provider: 11/05/17 12:16 Chief Complaint (Nursing): High Blood Pressure History Per: Patient History/Exam Limitations: no limitations Onset/Duration Of Symptoms: Days Current Symptoms Are (Timing): Still Present Past Medical History Reviewed: Historical Data, Nursing Documentation, Vital Signs Vital Signs: Last Vital Signs Temp 98 F 11/05/17 13:43 Pulse 78 11/05/17 13:43 Resp 18 11/05/17 13:43 BP 143/86 11/05/17 13:43 Pulse Ox 100 11/05/17 18:36 - Medical History PMH: HTN Denies: Chronic Kidney Disease Family History: States: No Known Family Hx - Social History Hx Tobacco Use: No Hx Alcohol Use: Yes Hx Substance Use: No - Immunization History Hx Tetanus Toxoid Vaccination: No Hx Influenza Vaccination: Yes Hx Pneumococcal Vaccination: No Review Of Systems Constitutional: Negative for: Fever, Chills Cardiovascular: Positive for: Chest Pain. Negative for: Palpitations Respiratory: Negative for: Shortness of Breath Gastrointestinal: Negative for: Nausea, Vomiting, Abdominal Pain Musculoskeletal: Negative for: Back Pain Skin: Negative for: Rash Neurological: Negative for: Weakness, Numbness, Headache, Dizziness Physical Exam - Physical Exam Appears: Non-toxic, No Acute Distress Skin: Normal Color, Warm, Dry, No Rash Head: Atraumatic, Normacephalic Eye(s): bilateral: Normal Inspection, PERRL, EOMI Nose: Normal Oral Mucosa: Moist Lips: Normal Appearing Neck: Normal ROM Chest: Symmetrical Cardiovascular: Rhythm Regular, No Murmur Respiratory: Normal Breath Sounds, No Accessory Muscle Use Gastrointestinal/Abdominal: Soft, No Tenderness Extremity: Normal ROM, No Tenderness, No Deformity, No Swelling Neurological/Psych: Oriented x3, Normal Speech ED Course And Treatment - Laboratory Results Result Diagrams: 11/05/17 12:43 11/05/17 12:43 Lab Interpretation: No Acute Changes O2 Sat by Pulse Oximetry: 100 (RA) Pulse Ox Interpretation: Normal Medical Decision Making Medical Decision Making: Impression: hypertension Prior records reviewed patient was seen in the ER 3 days ago for HTN. He had complete cardiac workup including EKG, CXR labs and cardiac enzymes and no acute findings. Plan: * Bloodwork * monitor BP Blood pressure normalized without intervention. Labs reviewed with no acute findings or changes from prior visit. Patient remained alert and oriented in no distress. I explained to patient the BP was normal and will have to continue monitor at home and give new medications few days to work. Disposition Counseled Patient/Family Regarding: Diagnosis, Need For Followup - Disposition Referrals: Cristina Medley MD [Staff Provider] - Disposition: HOME/ ROUTINE Disposition Time: 13:20 Condition: STABLE Additional Instructions: Continue with your usual HTN medications Contine con teagan medicamentos HTN habituales seguimiento en la clnica Instructions: High Blood Pressure (DC), Controlling Your Blood Pressure Through Lifestyle Print Language: DJIBOUTIAN - POA Present On Arrival: None - Clinical Impression Clinical Impression: Hypertension - Scribe Statement The provider has reviewed the documentation as recorded by the Scribe (Thanh Zamudio) All medical record entries made by the Scribe were at my direction and personally dictated by me. I have reviewed the chart and agree that the record accurately reflects my personal performance of the history, physical exam, medical decision making, and the department course for this patient. I have also personally directed, reviewed, and agree with the discharge instructions and disposition.
[2017-11-05 13:43] VITALS: BP 143/86; PULSE 78; RESP 18; TEMP 98
[2017-11-05 14:39] VITALS: O2SAT 100
--- NOTE | 2017-11-06 17:47 | CARD ---
APPROVED REPORT EKG Measurement Heart [id number] [place] 216P56 [id number] <Conclusion> Sinus bradycardia with 1st degree AV block Otherwise normal ECG
== END 2017-11-05 13:43 | disposition home or self-care (01) ==
LOC: C.ER 11:14
DX: I10 Essential (primary) hypertension (principal)

== ENCOUNTER 2018-04-29 20:15 | Emergency (ER) | payer OTHER ==
[2018-04-29 21:09] LABS: BASO % 0.4 % (0.0-2.0); EOS # 0.1 K/uL (0.0-0.7); EOS % 0.9 % (0.0-4.0); HEMOGLOBIN 15.6 g/dL (12.0-18.0); LYMPH # 1.7 K/uL (1.0-4.3); LYMPH % 27.6 % (20.0-40.0); MEAN CORPUSCULAR HEMOGLOBIN 27.1 pg (27.0-31.0); MEAN PLATELET VOLUME 7.7 fL (7.2-11.7); MONO # 0.5 K/uL (0.0-0.8); NEUT % 63.1 % (50.0-75.0); RBC 5.77 Mil/uL (4.40-5.90); RED CELL DISTRIBUTION WIDTH 13.6 % (11.5-14.5); WHITE BLOOD COUNT 6.3 K/uL (4.8-10.8)
--- NOTE | 2018-04-29 21:09 | C.PDOC ---
History Of Present Illness 43 year old male with a history of hypertension presents to the ED for evaluation of headache and shortness of breath for 1 day. The patient also reports having high blood pressure which prompted ED visit today. He notes the current symptoms are similar to prior high blood pressure episodes. The patient states recent changes were made to his blood pressure medications by material requirements planning manager Dr. Medley, Lisinpril was added to replace a previous unknown medication, and has been taking Amlodipine for several months. PMD Dr. Wilcox. He denies fever, chills, nausea, vomiting, and any other associated symptoms. Time Seen by Provider: 04/29/18 20:37 Chief Complaint (Nursing): High Blood Pressure History Per: Patient History/Exam Limitations: no limitations Onset/Duration Of Symptoms: Days (x1) Current Symptoms Are (Timing): Still Present Recent travel outside of the [place]: No Past Medical History Reviewed: Historical Data, Nursing Documentation, Vital Signs Vital Signs: Last Vital Signs Temp 98 F 04/29/18 20:25 Pulse 93 H 04/29/18 20:25 Resp 20 04/29/18 20:25 BP 189/113 H 04/29/18 20:25 Pulse Ox 100 04/29/18 20:25 - Medical History PMH: HTN Denies: Chronic Kidney Disease Family History: States: Unknown Family Hx - Social History Hx Tobacco Use: No Hx Alcohol Use: No Hx Substance Use: No - Immunization History Hx Tetanus Toxoid Vaccination: No Hx Influenza Vaccination: Yes Hx Pneumococcal Vaccination: No Review Of Systems Except As Marked, All Systems Reviewed And Found Negative. (as per HIP.) Constitutional: Positive for: Other (high blood pressure. ). Negative for: Fever, Chills Respiratory: Positive for: Shortness of Breath Gastrointestinal: Negative for: Nausea, Vomiting Neurological: Positive for: Headache Physical Exam - Physical Exam Appears: No Acute Distress, Other (anxious mood and affect.) Skin: Warm, Dry Head: Normacephalic, Tenderness Eye(s): bilateral: PERRL, EOMI Oral Mucosa: Moist Throat: No Erythema, No Exudate Neck: Normal ROM, Trachea Midline Lymphatic: No Adenopathy Chest: Symmetrical Cardiovascular: Rhythm Regular, No Murmur Respiratory: Normal Breath Sounds, No Accessory Muscle Use Gastrointestinal/Abdominal: Soft, No Tenderness Back: Normal Inspection Extremity: Normal ROM, No Pedal Edema Neurological/Psych: Oriented x3, Normal Speech, Normal Cognition, Normal Motor, Normal Sensation, Normal Reflexes ED Course And Treatment - Laboratory Results Result Diagrams: 04/29/18 21:06 04/29/18 21:06 ECG Rhythm: Sinus Rhythm Interpretation Of ECG: normal QRS. normal ST segments Rate From EC O2 Sat by Pulse Oximetry: 100 (RA) Pulse Ox Interpretation: Normal Medical Decision Making Medical Decision Making: Impression: hypertension urgency. Plan: --EKG --Blood sent. --Urinalysis. 9p Labs unremarkable Pt's BP decreased without intervention, HR in 90s-[address] Medley Cardiology. Advised to add metoprolol xl 25mg daily DW pt findings and plan of care. STable for dc with followup Dr Medley 1-2 weeks Disposition - Disposition Referrals: Cristina Medley MD [Staff Provider] - Disposition: HOME/ ROUTINE Disposition Time: 21:00 Condition: IMPROVED Prescriptions: Metoprolol Succinate XL [Toprol XL] 25 mg PO DAILY #30 tab Instructions: High Blood Pressure (DC) Forms: [employer] (Telugu) - Clinical Impression Clinical Impression: Hypertension - Scribe Statement The provider has reviewed the documentation as recorded by the Scribe (Maria L Spears) Provider Attestation: All medical record entries made by the Scribe were at my direction and personally dictated by me. I have reviewed the chart and agree that the record accurately reflects my personal performance of the history, physical exam, medical decision making, and the department course for this patient. I have also personally directed, reviewed, and agree with the discharge instructions and disposition.
[2018-04-29 21:19] LABS: URINE BILIRUBIN NEGATIVE (NEGATIVE); URINE BLOOD NEGATIVE (NEGATIVE); URINE CLARITY Clear (Clear); URINE COLOR Straw (YELLOW); URINE GLUCOSE (UA) NORMAL (Normal); URINE LEUKOCYTE ESTERASE NEG Leu/uL (Negative); URINE PROTEIN NEGATIVE (NEGATIVE); URINE UROBILINOGEN NORMAL mg/dL (0.2-1.0)
[2018-04-29 21:23] LABS: ALB/GLOB RATIO 1.4 (1.0-2.1); ALBUMIN 4.3 g/dL (3.5-5.0); ALT/SGPT 35 U/L (21-72); AST/SGOT 30 U/L (17-59); BLOOD UREA NITROGEN 11 mg/dL (9-20); CALCIUM 9.5 mg/dl (8.6-10.4); GFR NON-AFRICAN AMERICAN > 60
[2018-04-29 21:24] LABS: MEAN CELL VOLUME 79.6 fL (80.0-94.0)
[2018-04-29 21:34] LABS: B-TYPE NATRIURETIC PEPTIDE 35.1 pg/mL (0-450)
[2018-04-29 21:35] LABS: BARBITURATES, UR NEGATIVE (NEGATIVE); BENZODIAZEPINES, UR NEGATIVE (NEGATIVE); OPIATES, UR NEGATIVE (NEGATIVE); PHENCYCLIDINE, UR NEGATIVE (NEGATIVE)
[2018-04-29] MEDS ORDERED: Metoprolol Succinate 25 mg XL Tab PO ONE (21:35)
[2018-04-29 22:43] VITALS: BP 139/95; PULSE 62; RESP 18; TEMP 98.2; O2SAT 99
--- NOTE | 2018-04-30 11:38 | CARD ---
APPROVED REPORT Date of service: 04/29/2018 EKG Measurement Heart [id number] OR 192P67 [id number] <Conclusion> Normal sinus rhythm with sinus arrhythmia Normal ECG
== END 2018-04-29 22:43 | disposition home or self-care (01) ==
LOC: C.ER 20:15
DX: I10 Essential (primary) hypertension (principal)

== ENCOUNTER 2018-06-01 21:37 | Emergency (ER) | payer SELFPAY ==
[2018-06-01 21:46] VITALS: TEMP 97.8
[2018-06-01 22:10] LABS: BASO % 0.5 % (0.0-2.0); EOS # 0.2 K/uL (0.0-0.7); EOS % 1.8 % (0.0-4.0); HEMOGLOBIN 16.4 g/dL (12.0-18.0); LYMPH # 3.5 K/uL (1.0-4.3); LYMPH % 39.4 % (20.0-40.0); MEAN CELL VOLUME 81.2 fL (80.0-94.0); MEAN CORPUSCULAR HEMOGLOBIN 27.4 pg (27.0-31.0); MEAN CORPUSCULAR HGB CONC 33.7 g/dL (33.0-37.0); MONO # 0.6 K/uL (0.0-0.8); MONO % 6.5 % (0.0-10.0); NEUT # 4.6 K/uL (1.8-7.0); NEUT % 51.8 % (50.0-75.0); RED CELL DISTRIBUTION WIDTH 13.4 % (11.5-14.5); WHITE BLOOD COUNT 8.8 K/uL (4.8-10.8)
[2018-06-01 22:22] LABS: BLOOD UREA NITROGEN 14 mg/dL (9-20); CALCIUM 9.4 mg/dl (8.6-10.4); GFR NON-AFRICAN AMERICAN > 60
[2018-06-01 23:03] VITALS: RESP 18
[2018-06-01 23:04] VITALS: O2SAT 100
--- NOTE | 2018-06-01 23:04 | C.PDOC ---
History Of Present Illness 43 y/o male presents to the ED complaining of left-sided chest pain for the past week. No SOB. Patient states he saw PMD 1 week ago, had an x-ray, which was negative. Also reports being told he may need an MRI for persistent pain. Elvis santiago is also complaining of a dry cough for 1 month, which he attributes to his metoprolol use. Denies any family hx of sudden or cardiac disease. Denies known PMHx of cardiac or pulmonary disease. No associated fevers, chills, pleuritic pain, abdominal pain, nausea, vomiting, or cold sweats. Time Seen by Provider: 06/01/18 21:53 Chief Complaint (Nursing): Chest Pain History Per: Patient History/Exam Limitations: no limitations Onset/Duration Of Symptoms: Days Current Symptoms Are (Timing): Still Present Quality: "Pain" Past Medical History Reviewed: Historical Data, Nursing Documentation, Vital Signs Vital Signs: Last Vital Signs Temp 97.8 F 06/01/18 21:43 Pulse 84 06/01/18 21:43 Resp 16 06/01/18 21:43 BP 165/101 H 06/01/18 21:43 Pulse Ox 100 06/01/18 21:43 - Medical History PMH: HTN Denies: Chronic Kidney Disease Family History: States: Unknown Family Hx - Social History Hx Tobacco Use: No Hx Alcohol Use: No Hx Substance Use: No - Immunization History Hx Tetanus Toxoid Vaccination: No Hx Influenza Vaccination: Yes Hx Pneumococcal Vaccination: No Review Of Systems Constitutional: Negative for: Fever, Chills, Sweats Eyes: Negative for: Vision Change Cardiovascular: Positive for: Chest Pain. Negative for: Palpitations Respiratory: Positive for: Cough. Negative for: Shortness of Breath, SOB with Excertion, Pleuritic Pain, Sputum Gastrointestinal: Negative for: Nausea, Vomiting, Abdominal Pain Musculoskeletal: Negative for: Back Pain Neurological: Negative for: Weakness, Numbness, Dizziness Physical Exam - Physical Exam Appears: Non-toxic, No Acute Distress Skin: Normal Color, Warm, Dry Head: Atraumatic, Normacephalic Eye(s): bilateral: Normal Inspection, PERRL, EOMI Oral Mucosa: Moist Neck: Normal ROM Chest: Symmetrical, No Tenderness, No Ecchymosis Cardiovascular: Rhythm Regular, No Murmur Respiratory: Normal Breath Sounds, No Rales, No Rhonchi, No Wheezing Gastrointestinal/Abdominal: Soft, No Tenderness, No Distention Extremity: Normal ROM, No Pedal Edema, No Calf Tenderness, No Deformity Pulses: Left Dorsalis Pedis: Normal, Right Dorsalis Pedis: Normal Neurological/Psych: Oriented x3, Normal Speech Gait: Steady ED Course And Treatment - Laboratory Results Result Diagrams: 06/01/18 22:07 06/01/18 22:07 ECG: Interpreted By Me, Viewed By Me ECG Rhythm: Sinus Rhythm ECG Interpretation: No Acute Changes Interpretation Of ECG: NSR at 73 bpm, normal intervals, normal axis, no ST elevation O2 Sat by Pulse Oximetry: 100 (on RA) Pulse Ox Interpretation: Normal - Radiology CXR: Interpreted by Me, Viewed By Me CXR Interpretation: Yes: No Acute Disease. No: Infiltrates, Pnemothorax Medical Decision Making Medical Decision Making: Impression: 43 y/o male with PMHx of HTN, presenting with chest pain and dry cough Plan: --Blood work --Chest x-ray --Aspirin 325 mg PO Progress: CXR shows no acute disease. EKG is NSR with no ST changes. Labs reviewed, trop negative. Result discussed with patient and . Advised following up with PMD for further evaluation. Return to the ED for any new or worsening symptoms. Patient asking what he can take for headache, advised tylenol or motrin at home. Disposition - Disposition Disposition: HOME/ ROUTINE Disposition Time: 23:40 Condition: GOOD Additional Instructions: ROZ VIZCAINO, thank you for letting us take care of you today. Your provider was Britt Iraheta MD and you were treated for ABD PAIN. The emergency medical care you received today was directed at your acute symptoms. If you were prescribed any medication, please fill it and take as directed. It may take several days for your symptoms to resolve. Return to the Emergency Department if your symptoms worsen, do not improve, or if you have any other problems. Please contact your doctor or call one of the physicians/clinics you have been referred to that are listed on the Patient Visit Information form that is included in your discharge packet. Bring any paperwork you were given at discharge with you along with any medications you are taking to your follow up visit. Our treatment cannot replace ongoing medical care by a primary care provi jasper outside of the emergency department. Thank you for allowing the [facility] team to be part of your care today. If you had an X-Ray or CT scan: A Radiologist will review the ED reading if any change in treatment is needed we will contact you. If you had a blood, urine, or wound culture: It will take several days for the results, if any change in treatment is needed we will contact you. If you had an STI test: It will take 48 hours for the results. Please call after 1 week if you have not heard back. Instructions: Chest Pain (DC) Forms: [employer] (Greek) Print Language: YI - Clinical Impression Clinical Impression: Chest pain - Scribe Statement The provider has reviewed the documentation as recorded by the Joshua Herrera Provider Attestation: All medical record entries made by the Joshua were at my direction and personally dictated by me. I have reviewed the chart and agree that the record accurately reflects my personal performance of the history, physical exam, medical decision making, and the department course for this patient. I have also personally directed, reviewed, and agree with the discharge instructions and disposition.
[2018-06-01 23:07] VITALS: BP 133/84; PULSE 62
--- NOTE | 2018-06-02 07:53 | RAD ---
Chest x-ray single frontal view HISTORY: Chest pain. COMPARISON: 11/02/2017 FINDINGS: No focal infiltrate or effusion. Small nodular density in right upper lung zone likely represents a vessel on end. Tortuous aorta. Heart size within normal limits. Degenerative changes in the spine. Impression: No focal infiltrate or effusion. Small nodular density in right upper lung zone likely represents a vessel on end. Tortuous aorta.
--- NOTE | 2018-06-02 16:07 | CARD ---
APPROVED REPORT Date of service: 06/01/2018 EKG Measurement Heart [id number] CT 188P52 [id number] <Conclusion> Normal sinus rhythm Normal ECG
== END 2018-06-01 23:36 | disposition home or self-care (01) ==
LOC: C.ER 21:37
DX: R07.9 Chest pain, unspecified (principal); I10 Essential (primary) hypertension

== ENCOUNTER 2018-06-05 09:29 | Outpatient (CLI) | payer SELFPAY | END 2018-06-05 09:30 | disposition home or self-care (01) | LOC: C.CTH 09:29 | DX: R91.1 Solitary pulmonary nodule (principal) ==

== ENCOUNTER 2018-07-04 16:16 | Emergency (ER) | payer OTHER, SELFPAY ==
[2018-07-04 16:23] VITALS: BMI 20.7
[2018-07-04 16:32] VITALS: TEMP 98.2
[2018-07-04] MEDS ORDERED: Albuterol-Ipratrop 3 mg / 0.5 (3 ml) UD INH STA (17:02)
[2018-07-04] MEDS ORDERED: Albuterol 0.083% Inhal Sol (2.5 mg/3 mL) UD INH STA (17:05)
--- NOTE | 2018-07-04 17:10 | C.PDOC ---
History Of Present Illness 43 y/o male pt with hx of HTN presents to the ER c/o chest pain. Associated sx includes abdominal pain, weakness in his knees, nausea and coughing. Pt reports whenever he coughs, his face would turn red and feel hot. Pt notes he told his doctor about his sx and his doctor gave him an XR and CT scan which was unremarkable. Pt takes losartan and metoprolol. Pt denies vomiting, fever and chills. Time Seen by Provider: 07/04/18 16:45 Chief Complaint (Nursing): High Blood Pressure History Per: Patient History/Exam Limitations: no limitations Onset/Duration Of Symptoms: Days Current Symptoms Are (Timing): Still Present Past Medical History Reviewed: Historical Data, Nursing Documentation, Vital Signs Vital Signs: Last Vital Signs Temp 98.2 F 07/04/18 16:23 Pulse 89 07/04/18 16:50 Resp 16 07/04/18 16:23 BP 160/98 H 07/04/18 16:50 Pulse Ox 100 07/04/18 16:23 - Medical History PMH: HTN Family History: States: Unknown Family Hx - Social History Hx Tobacco Use: No Hx Alcohol Use: No Hx Substance Use: No - Immunization History Hx Tetanus Toxoid Vaccination: No Hx Influenza Vaccination: Yes Hx Pneumococcal Vaccination: No Review Of Systems Except As Marked, All Systems Reviewed And Found Negative. Constitutional: Positive for: Weakness (in knees). Negative for: Fever, Chills Cardiovascular: Positive for: Chest Pain Gastrointestinal: Positive for: Nausea, Abdominal Pain. Negative for: Vomiting Skin: Positive for: Other (red and hot face) Physical Exam - Physical Exam Appears: Non-toxic, No Acute Distress Skin: Warm, Dry, No Rash, Other (flushed face) Head: Normacephalic Eye(s): bilateral: Normal Inspection Oral Mucosa: Moist Throat: Normal Neck: Normal ROM, Supple Chest: Symmetrical Cardiovascular: Rhythm Regular Respiratory: Normal Breath Sounds, No Rales, No Rhonchi, No Wheezing Gastrointestinal/Abdominal: Soft, No Tenderness Back: No CVA Tenderness Extremity: Normal ROM (x4) Neurological/Psych: Oriented x3, Normal Speech ED Course And Treatment - Laboratory Results Result Diagrams: 07/04/18 17:13 07/04/18 17:13 O2 Sat by Pulse Oximetry: 100 (RA) Pulse Ox Interpretation: Normal Medical Decision Making Medical Decision Making: Plans: -- chem labs -- blood work -- EKG -- albuterol -- decadron Reassess: On reassessment, patient is resting comfortably, and is in no acute distress. Patient's cough has improved and now feels comfortable going home. Patient will be discharged and was instructed to follow up with physician in 1-2 days for further evaluation. Disposition - Disposition Referrals: [facility] [Outside] [facility] [Outside] [facility] [place] [Outside] Disposition: HOME/ ROUTINE Disposition Time: 18:03 Condition: GOOD Additional Instructions: Please use the inhaler every four hours for the next three days and use it as needed after the third day. Prescriptions: Albuterol Sulfate [Proventil Hfa] 6.7 gm IH Q4 30 Days #1 hfa.[email or web address].[email or web address] Instructions: Asthma in Adults Forms: [facility] (Wolof) - Clinical Impression Clinical Impression: Asthma exacerbation - Scribe Statement The provider has reviewed the documentation as recorded by the Scribe Justa Koehler Provider Attestation: All medical record entries made by the Scribe were at my direction and personally dictated by me. I have reviewed the chart and agree that the record accurately reflects my personal performance of the history, physical exam, medical decision making, and the department course for this patient. I have also personally directed, reviewed, and agree with the discharge instructions and disposition.
[2018-07-04 17:18] LABS: BASO # 0.1 K/uL (0.0-0.2); BASO % 0.9 % (0.0-2.0); EOS % 0.4 % (0.0-4.0); HEMOGLOBIN 16.5 g/dL (12.0-18.0); LYMPH # 1.9 K/uL (1.0-4.3); LYMPH % 23.6 % (20.0-40.0); MEAN CELL VOLUME 82.3 fL (80.0-94.0); MEAN CORPUSCULAR HEMOGLOBIN 26.7 pg (27.0-31.0); MEAN CORPUSCULAR HGB CONC 32.5 g/dL (33.0-37.0); MEAN PLATELET VOLUME 8.2 fL (7.2-11.7); MONO # 0.3 K/uL (0.0-0.8); MONO % 3.4 % (0.0-10.0); NEUT # 5.8 K/uL (1.8-7.0); NEUT % 71.7 % (50.0-75.0); NRBC % 0.1 % (0.0-2.0); RBC 6.17 Mil/uL (4.40-5.90); RED CELL DISTRIBUTION WIDTH 13.6 % (11.5-14.5); WHITE BLOOD COUNT 8.1 K/uL (4.8-10.8)
[2018-07-04] MEDS ORDERED: Albuterol 0.083% Inhal Sol (2.5 mg/3 mL) UD ONE (17:33)
[2018-07-04] MEDS ORDERED: Albuterol-Ipratrop 3 mg / 0.5 (3 ml) UD ONE (17:33)
[2018-07-04 17:35] LABS: ALB/GLOB RATIO 1.5 (1.0-2.1); ALT/SGPT 47 U/L (21-72); AST/SGOT 47 U/L (17-59); BLOOD UREA NITROGEN 11 mg/dL (9-20); CALCIUM 10.1 mg/dl (8.6-10.4); GFR NON-AFRICAN AMERICAN > 60
[2018-07-04 17:45] LABS: B-TYPE NATRIURETIC PEPTIDE 34.3 pg/mL (0-450)
--- NOTE | 2018-07-04 18:04 | RAD ---
Date of service: 07/04/2018 PROCEDURE: CHEST RADIOGRAPH, 1 VIEW HISTORY: SOB COMPARISON: 06/01/2018 FINDINGS: LUNGS: Clear. PLEURA: No pneumothorax or pleural fluid seen. CARDIOVASCULAR: No aortic atherosclerotic calcification present. Normal. OSSEOUS STRUCTURES: No significant abnormalities. VISUALIZED UPPER ABDOMEN: Normal. OTHER FINDINGS: None. IMPRESSION: No active disease.
[2018-07-04 18:07] VITALS: BP 138/89; PULSE 82; RESP 20
[2018-07-05 15:52] VITALS: O2SAT 100
== END 2018-07-04 18:23 | disposition home or self-care (01) ==
LOC: C.ER 16:16
DX: J45.901 Unspecified asthma with (acute) exacerbation (principal); I10 Essential (primary) hypertension
CPT/HCPCS: 71045; 80053; 83880; 84484; 85025; 96372; 99285; J1100

== ENCOUNTER 2018-09-08 11:06 | Outpatient (CLI) | payer OTHER | END 2018-09-08 11:07 | disposition home or self-care (01) | LOC: C.CTH 11:06 ==